=== PATIENT | male | born 1955 | race Caucasian/White ===

== ENCOUNTER 2017-01-11 14:51 | Emergency (ER) | payer BC ==
[~2017-01-11] VITALS: Ht 167.6 cm; Wt 92.1 kg
[~2017-01-11 14:51] MED LIST: AMOXICILLIN500 MG PO; ATORVASTATIN CA40 MG PO; PHENERGAN-CODE120 ML PO; QUINAPRIL-HCTZ1 EAC2 PO
[2017-01-11] MEDS ORDERED: NAPROSYN500 MG PO (17:22)
[2017-01-11 17:39] VITALS: BP 162/98
== END 2017-01-11 17:40 | disposition home or self-care (01) ==
LOC: EME 14:51
DX: M76.62 Achilles tendinitis, left leg (principal); M77.32 Calcaneal spur, left foot; Z88.1 Allergy status to other antibiotic agents
CPT/HCPCS: 73610; 99281; 99283

== ENCOUNTER 2017-01-13 22:13 | Observation (INO) | payer BC ==
[~2017-01-13] VITALS: Ht 167.6 cm; Wt 91.6 kg
[~2017-01-13 22:13] MED LIST changes: +NAPROSYN500 MG PO
[2017-01-13 22:34] LABS: HEMATOCRIT 43.8 % (38.0-50.0); MCH 28.6 PG (29.0-34.0); MCV 89.6 FL (86-99); MEAN PLAT.VOLUME 10.7 uM^3 (9.0-12.4); PLATELET COUNT 202 K/uL (156-360); RBC DIS.WIDTH-CV 15.9 % (11.8-14.6); RBC DIS.WIDTH-SD 51.8 % (39-53); RED BLOOD COUNT 4.89 M/uL (4.00-5.50); WHITE BLOOD COUNT 13.8 K/uL (4.1-10.2)
[2017-01-13 23:24] LABS: CHLORIDE 103 mEq/L (99-109); POTASSIUM 4.2 mEq/L (3.7-5.4); SODIUM 137 mEq/L (136-147)
[2017-01-13 23:27] LABS: ANION GAP 10 MEQ/L (2-14)
[2017-01-13 23:28] LABS: TOTAL BILIRUBIN 0.3 mg/dL (0.0-1.0)
[2017-01-13 23:29] LABS: ALKALINE PHOSPHATASE 67 IU/L (3-129)
[2017-01-13 23:30] LABS: GFR ESTIMATE (CALCULATED) > 59 mL/min/
[2017-01-13 23:31] LABS: UREA NITROGEN (BUN) 29 mg/dL (9-23)
[2017-01-13 23:33] LABS: LIPASE 14 U/L (1.0-51.0)
[2017-01-14 00:04] LABS: GLUCOSE 225 mg/dL (70-99)
[2017-01-14 04:18] LABS: INTER. NORMALIZED RATIO 1.1; PROTHROMBIN TIME 10.7 (9.2-11.2); PTT 25.5 (25-32)
[2017-01-14 05:37] LABS: ADD MIUA? YES; BILIRUBIN NEGATIVE; BLOOD NEGATIVE; COLOR YELLOW ((YELLOW)); GLUCOSE (STRIP) NEGATIVE; KETONES NEGATIVE; LEUKOCYTES TRACE; NITRITE NEGATIVE; PROTEIN (STRIP) 100; SPECIFIC GRAVITY 1.039 (1.000-1.030); UROBILINOGEN 0.2 MG/DL (0.2-1.0)
[2017-01-14 05:45] LABS: BACTERIA NONE SEEN /HPF; EPITHELIAL CELLS RARE /HPF; MUCUS TRACE /LPF; RED BLOOD CELLS 0-5 /HPF (0-5); UCUL ADDED? NO; URIC ACID CRYSTALS 2+ /HPF
[2017-01-14] MEDS ORDERED: NAPROXEN500 MG PO (08:45)
[2017-01-14] MEDS ORDERED: MULTI VITAMIN1 EACH PO (08:45)
[2017-01-14] MEDS ORDERED: FISH OIL 1,0001 EAC7 PO (08:46)
[2017-01-14] MEDS ORDERED: REFRESH TEARS15 ML BOTH EYES (08:51)
[2017-01-14 11:37] VITALS: BP 147/79
[2017-01-14 14:15] VITALS: BP 128/62
[2017-01-14 19:19] LABS: HEMATOCRIT 36.1 % (38.0-50.0); MCV 89.8 FL (86-99)
[2017-01-14 19:34] VITALS: BP 165/74
[2017-01-14 21:37] LABS: EOSINOPHIL (%) 4.1 % (0-5); EOSINOPHIL COUNT 0.3 K/uL (0-0.3); IMMATURE GRANULOCYTE (%) 0.7 % (0.0-0.7); IMMATURE GRANULOCYTE COUNT 0.1 K/uL; INSTRUMENT ABS NEUTROPHIL CT 5.4 K/uL; LYMPHOCYTE COUNT 1.9 K/uL (1.0-2.8); MCH 30.5 PG (29.0-34.0); MCHC 33.6 G/DL (30.0-36.0); MEAN PLAT.VOLUME 11.8 uM^3 (9.0-12.4); MONOCYTE (%) 7.5 % (3-12); MONOCYTE COUNT 0.6 K/uL (0-0.8); NEUTROPHIL (%) 64.7 % (45-76); NEUTROPHIL COUNT 5.4 K/uL (1.8-6.4); PLATELET COUNT 172 K/uL (156-360); RBC DIS.WIDTH-CV 15.9 % (11.8-14.6); RBC DIS.WIDTH-SD 52.4 % (39-53); RED BLOOD COUNT 3.94 M/uL (4.00-5.50); WHITE BLOOD COUNT 8.3 K/uL (4.1-10.2)
[2017-01-15 00:03] VITALS: BP 152/78
[2017-01-15 04:20] VITALS: BP 132/80
[2017-01-15 08:14] VITALS: BP 129/78
[2017-01-15 11:06] LABS: HEMATOCRIT 36.2 % (38.0-50.0); MCH 29.7 PG (29.0-34.0); MCHC 33.1 G/DL (30.0-36.0); MCV 89.6 FL (86-99); MEAN PLAT.VOLUME 10.9 uM^3 (9.0-12.4); PLATELET COUNT 173 K/uL (156-360); RBC DIS.WIDTH-CV 15.6 % (11.8-14.6); RBC DIS.WIDTH-SD 51.2 % (39-53); RED BLOOD COUNT 4.04 M/uL (4.00-5.50); WHITE BLOOD COUNT 6.9 K/uL (4.1-10.2)
[2017-01-15 11:25] LABS: ANION GAP 4 MEQ/L (2-14); CHLORIDE 102 MEQ/L (99-109); GFR ESTIMATE (CALCULATED) > 59 mL/min/; GLUCOSE 127 mg/dL (70-99); POTASSIUM 4.1 MEQ/L (3.7-5.4); SAMPLE HEMOLYSIS CHECK 0; SAMPLE ICTERIC CHECK 0; SAMPLE LIPEMIA CHECK 0; SODIUM 135 MEQ/L (136-147); UREA NITROGEN (BUN) 14 mg/dL (9-23)
[2017-01-15 12:28] LABS: POINT-OF-CARE METER ID UU13113831
[2017-01-15 15:43] VITALS: BP 164/84
[2017-01-15 20:30] VITALS: BP 147/87
[2017-01-15 22:29] LABS: HEMATOCRIT 37.4 % (38.0-50.0); MCH 29.4 PG (29.0-34.0); MCHC 32.9 G/DL (30.0-36.0); MCV 89.5 FL (86-99); MEAN PLAT.VOLUME 11.2 uM^3 (9.0-12.4); PLATELET COUNT 186 K/uL (156-360); RBC DIS.WIDTH-CV 15.7 % (11.8-14.6); RBC DIS.WIDTH-SD 50.1 % (39-53); RED BLOOD COUNT 4.18 M/uL (4.00-5.50); WHITE BLOOD COUNT 9.1 K/uL (4.1-10.2)
[2017-01-15 22:39] LABS: POINT-OF-CARE METER ID UU13113831
[2017-01-16 00:30] VITALS: BP 132/74
[2017-01-16 04:07] VITALS: BP 121/67
[2017-01-16 07:58] LABS: POINT-OF-CARE METER ID UU13113831
[2017-01-16 09:47] LABS: ANION GAP 4 MEQ/L (2-14); CHLORIDE 105 MEQ/L (99-109); GFR ESTIMATE (CALCULATED) > 59 mL/min/; GLUCOSE 114 mg/dL (70-99); IRON 53 MCG/DL (35-150); SAMPLE HEMOLYSIS CHECK 0; SAMPLE ICTERIC CHECK 0; SAMPLE LIPEMIA CHECK 0; SODIUM 140 MEQ/L (136-147); UREA NITROGEN (BUN) 10 mg/dL (9-23)
[2017-01-16 10:04] LABS: FERRITIN 25 NG/ML (22-322)
[2017-01-16 10:56] LABS: EOSINOPHIL (%) 2.4 % (0-5); EOSINOPHIL COUNT 0.2 K/uL (0-0.3); HEMATOCRIT 36.2 % (38.0-50.0); IMMATURE GRANULOCYTE COUNT 0.1 K/uL; INSTRUMENT ABS NEUTROPHIL CT 6.2 K/uL; LYMPHOCYTE COUNT 1.9 K/uL (1.0-2.8); MCH 30.6 PG (29.0-34.0); MEAN PLAT.VOLUME 11.5 uM^3 (9.0-12.4); MONOCYTE COUNT 0.6 K/uL (0-0.8); NEUTROPHIL (%) 68.5 % (45-76); NEUTROPHIL COUNT 6.2 K/uL (1.8-6.4); PLATELET COUNT 182 K/uL (156-360); RBC DIS.WIDTH-CV 15.9 % (11.8-14.6); RBC DIS.WIDTH-SD 52.4 % (39-53); RED BLOOD COUNT 4.02 M/uL (4.00-5.50); WHITE BLOOD COUNT 9.1 K/uL (4.1-10.2)
[2017-01-16 11:00] VITALS: BP 189/96
[2017-01-16 12:19] LABS: POINT-OF-CARE METER ID UU13113831
[2017-01-16] MEDS ORDERED: PANTOPRAZOLE SO40 MG PO (12:49)
[2017-01-17 13:09] LABS: POC NON-PRINT COM 1 ND
== END 2017-01-16 13:43 | disposition home or self-care (01) ==
LOC: EME 22:13 → EDOF 01-14 08:09 → 5WEST 01-14 13:56
PROVIDERS: Emergency Medicine; Internal Medicine; Specialist; Student in an Organized Health Care Education/Training Program
DX: R10.9 Unspecified abdominal pain (principal); K92.2 Gastrointestinal hemorrhage, unspecified; K44.9 Diaphragmatic hernia without obstruction or gangrene; E86.0 Dehydration; R93.5 Abnormal findings on diagnostic imaging of other abdominal regions, including retroperitoneum; R93.8 Abnormal findings on diagnostic imaging of other specified body structures; R13.10 Dysphagia, unspecified; D72.829 Elevated white blood cell count, unspecified; K64.9 Unspecified hemorrhoids; F17.200 Nicotine dependence, unspecified, uncomplicated; Z88.0 Allergy status to penicillin
CPT/HCPCS: 74020; 74177; 80048; 80053; 81003; 82272; 82728; 82948; 83540; 83605; 83690; 84466; 85014; 85018; 85025; 85027; 85610; 85730; 86900; 86901; 99281; 99285; C9113; G0378; J7030; J7512; S0028